=== PATIENT | female | born 1980 | race Native Hawaiian/Other Pacific Islander ===

== ENCOUNTER 2017-11-05 12:12 | Outpatient (CLI) | payer OTHER | END 2017-11-05 12:18 | disposition short-term general hospital (02) | LOC: AMB 12:12 | DX: M25.561 Pain in right knee (principal); V49.9XXA Car occupant (driver) (passenger) injured in unspecified traffic accident, initial encounter; Y93.89 Activity, other specified; Y92.89 Other specified places as the place of occurrence of the external cause | CPT/HCPCS: A0425; A0427 ==

== ENCOUNTER 2017-11-05 12:18 | Emergency (ER) | payer OTHER ==
[~2017-11-05] VITALS: Ht 160 cm; Wt 72.6 kg
[2017-11-05 12:30] VITALS: TEMP 97.9
[2017-11-05 15:18] VITALS: BP 128/74
== END 2017-11-05 15:18 | disposition home or self-care (01) ==
LOC: ED 12:18
DX: S09.90XA Unspecified injury of head, initial encounter (principal); S83.91XA Sprain of unspecified site of right knee, initial encounter; V49.40XA Driver injured in collision with unspecified motor vehicles in traffic accident, initial encounter
CPT/HCPCS: 99283; L1830

== ENCOUNTER 2020-06-05 21:49 | Observation (INO) | payer OTHER ==
[~2020-06-05] VITALS: Ht 157.5 cm; Wt 56.0 kg
[2020-06-05 22:40] VITALS: BP 101/63; TEMP 98.2
[2020-06-06] VITALS (8 sets, daily range): BP systolic 99–128; BP diastolic 60–83; TEMP 97.7–98.5; Ht 157.5 cm; Wt 56.0 kg
[2020-06-06 01:17] LABS: PLATELET COUNT 628 K/uL (152-353)
[2020-06-06 01:25] LABS: POTASSIUM 3.5 mmol/L (3.6-5.2)
--- NOTE | 2020-06-06 11:10 | NUR ---
PT'S DAUGHTER, SABRINA, CALLED AND ASKED FOR DETAILS ON WHY HER MOTHER HAS BEEN ADMITTED TO THE HOSPITAL. WHEN LOOKING FOR THE CHART THE DAUGHTER WAS NOT LISTED AN EMERGENCY CONTACT. THE DAUGHTER WAS TRANSFERRED TO THE PT'S ROOM. ANAI WENT TO PT'S ROOM TO ANSWER THE PHONE. PT WAS RESTING IN LF WITH EYES CLOSED. DIGITAL ANALYST ASKED IF PT WANTED TO SPEAK WITH HER DAUGHTER, PT STATED NO THAT SHE WOULD CALL HER DAUGHTER LATER. DAUGHTER ASKED IF DIGITAL ANALYST COULD GIVE ANY INFORMATION ON HER MOTHER. DIGITAL ANALYST ASKED PT FOR PERMISSION TO SPEAK TO DAUGHTER ABOUT ADMITTING DIAGNOSIS AND PT STATED THAT IT WAS OKAY TO TALK TO THE DAUGHTER. DAUGHTER WAS TOLD THAT PT HAS CELLULITIS TO THE RIGHT HAND, PT IS RECIEVING PAIN MEDICATIONS TO KEEP THE PAIN AT A MINIMUM, AND ANTIBIOTICS TO KILL THE INFECTION. DAUGHTER VERBALIZED UNDERSTANDING AND STATED THAT SHE WOULD CALL AGAIN LATER TO CHECK IN.
--- NOTE | 2020-06-06 14:59 | NUR ---
PT'S IV PUMP KEEPS SHOWING THAT THE LINE IS OCCLUDED ON THE PT'S SIDE. A BOARD WAS APPLIED TO THE POSTERIOR PART OF THE ARM AND WRAPPED IN BANDAGE TERRELL. IV WAS RESTARTED AND NO LONGER SHOWED THAT AN OCCLUSION WAS PRESENT. PT HAS BEEN SLEEPING ALL DAY AND HAS NOT EXPRESSED ANY NEEDS/WANTS. PT STAYED ASLEEP DURING APPLICATION OF THE BOARD AND NEVER OPENED HER EYES.
--- NOTE | 2020-06-06 17:30 | NUR ---
PT STATED THAT HER RT HAND WAS STILL ACHING. PRESCRIBED TORADOL DOSE WAS GIVEN. 10 MINUTES AFTER ADMINISTERING THE TORADOL EQUITY RESEARCH ANALYST WENT TO ELEVATE RIGHT HAND. PT WAS LAYING IN THE BED USING THE RIGHT HAND TO TEXT ON THE PHONE. PT SET PHONE TO THE SIDE.
--- NOTE | 2020-06-06 18:20 | NUR ---
ENTERED PT'S ROOM, PT IS STANDING UP WALKING TO THE BATHROOM WHILE MOVING IV PUMP. IV PUMP IS BEEPING DUE TO PT'S ARM BEING BENT. COLLEGE SCOUTING COORDINATOR INFORMED PT TO USE CALL LIGHT WHEN BACK IN THE BED SO COLLEGE SCOUTING COORDINATOR CAN COME FIX THE IV PUMP.
--- NOTE | 2020-06-06 18:30 | NUR ---
WENT BACK TO PT'S ROOM TO FIX IV PUMP FROM BEEPING. PT WAS LAYING ON THE RIGHT SIDE CURLED UP UNDER THE BLANKETS. PT HELD LEFT ARM OUT STRAIGHT FOR PIT CLERK TO RESTART IV PUMP. PT WAS EDUCATED AGAIN TO KEEP ARM STRAIGHT OR THE PUMP WILL BEGIN TO BEEP AGAIN.
[2020-06-07 00:15] VITALS: BP 91/58; TEMP 98.6
[2020-06-07 04:00] VITALS: BP 93/52; TEMP 98.2
[2020-06-07 06:49] LABS: PLATELET COUNT 505 K/uL (152-353)
[2020-06-07 08:00] VITALS: BP 101/60; TEMP 97.9
[2020-06-07 12:00] VITALS: BP 119/57; TEMP 97.9
--- NOTE | 2020-06-07 12:48 | NUR ---
WARM COMPRESS APPLIED TO RT HAND
[2020-06-07] MEDS ORDERED: CLINDAMYCIN HY300 MG PO (14:04)
--- NOTE | 2020-06-07 14:48 | NUR ---
22G IV TO LAC D/C WITH TIP INTACT. DC INSTRUCTIONS EXPLAINED TO PT WHO VERBALIZED UNDERSTANDING.
--- NOTE | 2020-06-07 14:52 | NUR ---
PT LEFT FLOOR IN NAD WITH FAMILY, BELONGINGS WITH PT.
--- NOTE | 2020-06-08 15:00 | NUR ---
PT CALLED TO SAY THAT SHE HAD BEEN BY [facility] TO RECYCLER ATB AND THEY DID NOT RECIEVE SCRIPT. [facility] ON PHONE TO SAY THAT THEY DID NOT RECIEVE AN ESCRIPT FOR PT, DR MCLEOD AT [facility], GAVE ORDER TO PHARMACY FOR PTS ATB. PT WAS CALLED BACK TO INFORM HER THAT [facility] WAS GIVEN AN ORDER FOR MEDICINE. APOLOGY WAS MADE AND PT WAS UNDERSTADING.
== END 2020-06-07 14:55 | disposition home or self-care (01) ==
LOC: ED 21:49 → MED/SURG 06-06 02:30
PROVIDERS: ADMIT Emergency Medicine Emergency Medical Services; ATTEND Internal Medicine Endocrinology, Diabetes & Metabolism
DX: L03.113 Cellulitis of right upper limb (principal); M79.641 Pain in right hand; Z72.0 Tobacco use; D47.3 Essential (hemorrhagic) thrombocythemia
CPT/HCPCS: 36415; 80048; 80202; 83605; 84550; 85027; 86140; 87040; 87635; 96360; 96361; 96365; 96375; 99220; 99284; G0378; J1885; J2270; J2405; J2543; J3370; Q9963; U0003

== ENCOUNTER 2022-08-17 20:55 | Emergency (ER) | payer OTHER ==
[~2022-08-17] VITALS: Ht 157.5 cm; Wt 54.4 kg
[~2022-08-17 20:55] MED LIST: CLINDAMYCIN HY300 MG PO
[2022-08-17 23:24] LABS: PLATELET COUNT 380 K/uL (152-353)
[2022-08-17 23:30] LABS: POTASSIUM 3.8 mmol/L (3.6-5.2)
[2022-08-18 01:15] VITALS: BP 107/60
== END 2022-08-18 01:15 | disposition home or self-care (01) ==
LOC: ED 20:55
PROVIDERS: Family Medicine
DX: L02.612 Cutaneous abscess of left foot (principal); L03.90 Cellulitis, unspecified; F17.290 Nicotine dependence, other tobacco product, uncomplicated
CPT/HCPCS: 36415; 80053; 80307; 81000; 83605; 85027; 87040; 87070; 87077; 87185; 87186; 87205; 96361; 96365; 96375; 96376; 99284; J1885; J2270; J2405; J2543